=== PATIENT | male | born 1985 | race Caucasian/White ===

== ENCOUNTER 2023-03-09 17:25 | Emergency (ER) | payer SELFPAY | END 2023-03-09 18:15 | disposition left against medical advice (07) | LOC: CSHERS 17:25 | DX: Z53.21 Procedure and treatment not carried out due to patient leaving prior to being seen by health care provider (principal) ==

== ENCOUNTER 2023-07-26 08:22 | Outpatient (CLI) | payer OTHER | END 2023-07-26 08:23 | disposition home or self-care (01) | LOC: CSHMRI 08:22 | PROVIDERS: ATTEND Orthopaedic Surgery | DX: S86.812A Strain of other muscle(s) and tendon(s) at lower leg level, left leg, initial encounter (principal); L98.9 Disorder of the skin and subcutaneous tissue, unspecified; M71.22 Synovial cyst of popliteal space [Baker], left knee; M17.12 Unilateral primary osteoarthritis, left knee ==